=== PATIENT | female | born 1950 | race Caucasian/White ===

== ENCOUNTER 2017-11-21 19:38 | Emergency (ER) | payer OTHER ==
[~2017-11-21] VITALS: Ht 170.2 cm; Wt 59.0 kg
[~2017-11-21 19:38] MED LIST: NEXIUM40 MG PO; NORCO 5-325 TA1 EACH PO; PROAIR HFA8.5 GM INH; SILVADENE20 GM TP; TUSSIONEX PENN115 ML PO
[2017-11-21] MEDS ORDERED: PENICILLIN V P500 MG PO (21:03)
== END 2017-11-21 21:15 | disposition home or self-care (01) ==
LOC: ER 19:38
DX: K05.10 Chronic gingivitis, plaque induced (principal); K00.7 Teething syndrome; R00.0 Tachycardia, unspecified; F17.210 Nicotine dependence, cigarettes, uncomplicated

== ENCOUNTER → 2018-07-13 | Outpatient (CLI) | payer OTHER ==
[~2018-07-13] MED LIST changes: +PENICILLIN V P500 MG PO
== END ==
LOC: RAD 04:52
DX: Z12.31 Encounter for screening mammogram for malignant neoplasm of breast (principal)

== ENCOUNTER → 2019-09-05 | Outpatient (CLI) | payer OTHER | LOC: BC 07:51 | DX: Z12.31 Encounter for screening mammogram for malignant neoplasm of breast (principal) ==

== ENCOUNTER → 2019-09-25 | Outpatient (CLI) | payer OTHER | LOC: BC 12:42 | DX: N63.12 Unspecified lump in the right breast, upper inner quadrant (principal) ==

== ENCOUNTER → 2019-09-30 | Outpatient (CLI) | payer OTHER ==
--- NOTE | 2019-10-08 12:07 | PATH ---
[facility] [place] [address] PATHOLOGY RPT PROCEDURE Name: NEGIN SIMMS Room #: REG GIUSEPPE M.R.#: [id number] Admission: 09/30/19 Date of : 54 Discharge: Report #: [id number] Path Case #: [id number] LCA Accession Number: [id number] . 01 Material submitted: . breast - RIGHT BREAST MASS 12:30-1:00 6CMFN. Modifiers: right . 01 Clinical history: . Right breast mass . 02 Diagnosis: Breast, right breast mass 12:30 to 1:00, 6 cm from nipple, needle core biopsy: - INVASIVE MODERATELY DIFFERENTIATED DUCTAL ADENOCARCINOMA, MARISELA GRADE II MEASURING 1.2 CM IN GREATEST DIMENSION IN CONTIGUOUS LENGTH IN A SINGLE CORE (PLEASE SEE COMMENT). - DUCTAL CARCINOMA IN SITU, SOLID TYPE AND INTERMEDIATE NUCLEAR GRADE. . (IUV:jerardo; 10/02/2019) QMS 10/02/2019 1424 Local . 02 Comment: Specimen type: Needle core biopsy Tumor site: Right breast 12:30 to 1:00, 6 cm from nipple Tumor quantitation: 1.2 cm in greatest dimension Histologic type: Invasive ductal carcinoma Histologic grade: [place] grade II Tubules, nuclei and mitoses: 3, 2 and 1 LVSI: Not identified Microcalcifications: Present within invasive ductal carcinoma Markers: ER, NV, HER-2/rizwana and Ki-67 Block: A2 . . Co-review (slide A4-13): Dr. Celina Warren . Findings of this case are telephoned to Ms. Nguyen at our breast center in the morning of 10/02/2019. . (IUV:jerardo; 10/02/2019) . 02 Addendum: . Special studies report received from [facility], [address] [place] [address], [facility] [address], [place], [address], on case [id number], labeled with their number [id number], dated 10/07/2019. . Breast/[place] [address] PATHOLOGY RPT PROCEDURE Name: NEGIN SIMMS Room #: REG GIUSEPPE Espino#: [id number] Admission: 09/30/19 Date of : 54 Discharge: Report #: [id number] Path Case #: [id number] . Specimen Site: Rt Breast,mass - Breast Cancer Specimen ID #: [id number] . . ER (Estrogen Receptor) Present/Positive Percent: 95.00% Analysis: Manual Comments: Staining Intensity: Moderate to Strong. . NV (Progesterone Receptor) Present/Positive Percent: 80.00% Analysis: Manual Comments: Staining Intensity: Weak to Moderate. . HER2 Not Over-Expressed Score: 1+ Analysis: Manual . Ki-67 Low Proliferation Percent: 5.00% Analysis: Manual . Time to Fixation (Cold Ischemic Time): Not Provided Duration of Fixation: Not Provided Type of Fixative: 10% Neutral Buffered Formalin . at [employer]. Clarence Rincon MD Pathologist . . Methodology The HER2 Receptor protein expression is analyzed using the Lolita HER2 rabbit monoclonal antibody (clone [id number]). This assay is used for diagnostic determination of the HER2 protein over-expression in paraffin embedded, formalin fixed breast cancer tissue on the [employer] Benchmark. The specimen is processed using a secondary antibody-HRP conjugate detection system. The membrane staining of the tumor is determined either by manual score or image analysis. This antibody is intended for in vitro diagnostic use. The score is reported as 0, 1+, 2+, or 3+. This test is used for clinical purposes. . A rabbit monoclonal antibody (clone SP1) that recognized the Estrogen [address] [address] PATHOLOGY RPT PROCEDURE Name: NEGIN SIMMS Room #: REG GIUSEPPE Espino#: [id number] Admission: 09/30/19 Date of : 54 Discharge: Report #: [id number] Path Case #: [id number] Receptor is used to perform immunohistochemistry on routinely fixed (formalin) paraffin embedded tissue on the Lolita Benchmark. The specimen is processed using a secondary antibody-HRP conjugate detection system. The percentage of stained tumor nuclei is determined either manually or by image analysis. This test is intended for in vitro diagnostic use. This test is used for clinical purposes. . A rabbit monoclonal antibody (clone 1E2) that recognized the Progesterone Receptor is used to perform immunohistochemistry on routinely fixed (formalin) paraffin embedded tissue on the Lolita Benchmark. The specimen is processed using a secondary antibody-HRP conjugate detection system. The percentage of stained tumor nuclei is determined either manually or by image analysis. This test is intended for in vitro diagnostic use. This test is used for clinical purposes. . A rabbit monoclonal antibody (clone 30-9) that recognized Ki67 is used to perform immunohistochemistry on routinely fixed (formalin) paraffin embedded tissue on the Lolita Benchmark. The specimen is processed using a secondary antibody-HRP conjugate detection system. The percentage of stained tumor nuclei is determined either manually or by image analysis. This test is intended for in vitro diagnostic use. This test is used for clinical purposes. . Intended Use: This antibody is intended for in vitro diagnostic (IVD) use. HER2 (4B5) is a rabbit monoclonal antibody intended for the semi-quantitative detection of HER2 antigen in sections of formalin-fixed, paraffin embedded normal and neoplastic tissue. . This antibody is intended for in vitro diagnostic (IVD) use. Estrogen Receptor (ER) (SP1) is a rabbit monoclonal antibody (IgG) that is intended for the qualitative detection of estrogen receptor (ER) antigen in sections of formalin-fixed, paraffin-embedded tissue. ER is a rabbit monoclonal antibody that recognizes human estrogen receptor alpha. . This antibody is intended for in vitro diagnostic (IVD) use. Progesterone Receptor (NV) (1E2) is a rabbit monoclonal antibody (IgG) that is intended for the qualitative detection of progesterone receptor (NV) antigen in sections of formalin fixed, paraffin embedded tissue. NV is a rabbit monoclonal antibody that recognizes the A and B forms of the human progesterone receptor. . This antibody is intended for in vitro diagnostic (IVD) use. Ki-67 (30-9) is a rabbit monoclonal antibody (IgG) directed against C-terminal portion of Ki-67 antigen. Staining for Ki-67 can be used to aid in assessing the proliferative activity of normal and neoplastic tissue. Ki-67 is a nuclear protein expressed in proliferating cells. During the cell cycle, the Ki-67 antigen is present in the G1, S, G2 and M phase but is absent in the G0 [facility] [address] [place] [address] PATHOLOGY RPT PROCEDURE Name: NEGIN SIMMS Room #: REG [facility].#: [id number] Admission: 09/30/19 Date of : 54 Discharge: Report #: [id number] Path Case #: [id number] (quiescent phase). . . Disclaimer: This Test was performed by [employer] at [address], [address]. . [facility] is a business unit of [employer] a wholly-owned subsidiary of [employer]. . This assay has not been validated on decalcified tissues. Results should be interpreted with caution if this specimen was decalcified given the likelihood of false negativity on decalcified specimens. . Any image(s) that accompany this report is/are a solar sales representative and assessor image(s) only and should not be used to render a diagnosis. . This interpretation is contingent on the specimen and the clinical information received. . For any special tests/stains performed, known positive cells or tissues are tested with each marker and examined to ensure positivity. Positive and negative internal controls, if present, react appropriately. . This analysis is an adjunct to the evaluation of the referring physician and does not represent a final diagnosis. . The immunohistochemistry tests performed at [employer] were validated on tissue fixed in 10% neutral buffered formalin. The performance characteristics of the tests performed on tissue processed in other fixatives is not known. . HER2 testing at [employer] [place] is performed in compliance with the 2018 updated ASCO/CAP Clinical Practice Guideline Focused Update. If the result is EQUIVOCAL (2+), it must be confirmed by an alternative assay such as FISH or Dual RASHEED. REF: Carli FAY, ERNESTO Villalpando et al: Human Epidermal Growth Factor Receptor 2 Testing in Breast Cancer: ASCO/CAP Clinical Practice Guideline Focused Update. J Clin Oncol 36:5427-7337, 2018. . HER2 and ER/NV ASCO/CAP guidelines require fixation in neutral buffered formalin for a minimum of 6 and a maximum of 72 hours. Fixation times less than 6 hours may not adequately preserve cell proteins. Fixation times longer than 72 hours may cause excess cross-linking of proteins reducing the antigen available for staining. Either scenario can cause reduced staining; hence false negative results are possible and should be considered for these situations if the HER2 IHC score is less than 3+ or [address] [address] PATHOLOGY RPT PROCEDURE Name: NEGIN SIMMS Room #: REG GIUSEPPE Espino#: [id number] Admission: 09/30/19 Date of : 54 Discharge: Report #: [id number] Path Case #: [id number] ER or NV is negative (no staining or <1% positive). It is recommended that specimens fixed longer than 72 hours with HER2 IHC scores less than 3+ be confirmed by HER2 FISH or Dual RASHEED. The time from biopsy/excision to fixation in formalin (cold ischemic time) must be less than 1 hour. Time to fixation (cold ischemic time) greater than 1 hour should be interpreted with caution. HER2 testing, mainly HER2 by FISH, is particularly vulnerable since excessive cold ischemic time results in preferential loss of HER2 probe signals that may lead to false negative results. . SCORE STAINING PATTERN IN TUMOR CELLS INTERPRETATION RESULTS 0 No staining observed or incomplete, faint membrane staining in less than or equal to 10% of tumor cells. Negative 1+ Incomplete, faint membrane staining in greater than 10% of tumor cells. Negative 2+ Weak to moderate complete membrane staining observed in greater than 10% of tumor cells. Equivocal* *Must be confirmed by alternative assay (IHC/FISH/Dual RASHEED) 3+ Intense, complete membrane staining in greater than 10% of tumor cells. Positive . A complete copy of the report is on file. . Professional and Technical services performed by [employer] at [address] [place] [address]. . (IUV:amj 10/08/2019) . . . [place]/10/08/2019 Addendum Electronically Signed by Blessing Elder MD, Pathologist . 02 Electronically signed: . Blessing Elder MD, Pathologist NPI- [id number] . 01 Gross description: . The specimen is received in formalin, labeled "Negin Simms, right breast mass 12:30-1:00 6 cm from nipple". Received are multiple needle cores of fibrofatty tissue measuring 4.2 x 3.6 x 0.7 cm in aggregate dimensions. The specimen is submitted entirely in cassettes A1 through [address] [address] PATHOLOGY RPT PROCEDURE Name: NEGIN SIMMS Room #: REG CLShaheen Stevens.#: [id number] Admission: 09/30/19 Date of : 54 Discharge: Report #: [id number] Path Case #: [id number] A5. The specimen is collected at 2:45 p.m. on 09/30/2019; the time in formalin is not provided. The time out of formalin is 6:50 p.m. on 10/01/2019. (CAA; 10/01/2019) QAC/QAC 10/01/2019 0842 Local . 02 Pathologist provided ICD-10: C50.911, D05.11 . 02 CPT . 232192 Specimen Comment: A courtesy copy of this report has been sent to [phone] Specimen Comment: Report sent to Performed at: [address] [facility], [place] [id number] MD Sai Smith MD Phone: [phone] Performed at: [address] [facility] [id number] MD Blessing Elder MD Phone: [phone]
== END | disposition home or self-care (01) ==
LOC: ULTRA 14:00
DX: C50.911 Malignant neoplasm of unspecified site of right female breast (principal); R92.1 Mammographic calcification found on diagnostic imaging of breast; Z98.890 Other specified postprocedural states; Z79.899 Other long term (current) drug therapy; Z85.818 Personal history of malignant neoplasm of other sites of lip, oral cavity, and pharynx

== ENCOUNTER 2019-11-03 17:38 | Emergency (ER) | payer OTHER ==
[~2019-11-03] VITALS: Ht 170.2 cm; Wt 59.4 kg
[2019-11-03] MEDS ORDERED: NORCO 5-325 TA1 EAC1 PO (19:18)
[2019-11-03] MEDS ORDERED: LIDOCAINE1 EACH TRANSDERM (19:18)
[2019-11-03] MEDS ORDERED: MOBIC15 MG PO (19:18)
[2019-11-03 19:45] VITALS: BP 113/95
== END 2019-11-03 19:47 | disposition home or self-care (01) ==
LOC: ER 17:38
DX: S22.32XA Fracture of one rib, left side, initial encounter for closed fracture (principal); F17.210 Nicotine dependence, cigarettes, uncomplicated; W18.09XA Striking against other object with subsequent fall, initial encounter; Y93.89 Activity, other specified; Y92.89 Other specified places as the place of occurrence of the external cause; Y99.8 Other external cause status

== ENCOUNTER → 2019-11-04 | Outpatient (CLI) | payer OTHER ==
[~2019-11-04] MED LIST changes: +LEXAPRO 10 MG T10 M2 PO; +LIDOCAINE1 EACH TRANSDERM; +MOBIC15 MG PO; +NORCO 5-325 TA1 EAC1 PO; +TYLENOL EXTRA500 MG PO
[2019-11-04 11:07] LABS: CREATININE 0.6 mg/dL (0.6-1.0)
== END ==
LOC: MRI 09:58
PROVIDERS: Specialist
DX: C50.211 Malignant neoplasm of upper-inner quadrant of right female breast (principal); R92.2 Inconclusive mammogram

== ENCOUNTER 2019-11-22 08:44 | Day surgery (SDC) | payer OTHER ==
[~2019-11-22] VITALS: Ht 165.1 cm; Wt 60.3 kg
[2019-11-22 09:40] LABS: HEMATOCRIT 42.9 % (37.0-47.0); HEMOGLOBIN 14.2 gm/dL (12.0-15.0); MCH 30.8 pg (26.0-34.0); MCV 93.3 fL (80.0-100.0); RBC 4.6 mil/uL (4.20-5.00); RDW 14.7 % (10.5-14.5); WBC 6.8 thou/uL (4.0-11.0)
[2019-11-22 09:46] LABS: CALCIUM 10.1 mg/dL (8.5-10.1); CREATININE 0.6 mg/dL (0.6-1.0); POTASSIUM 3.8 mmol/L (3.5-5.1)
[2019-11-22 09:52] LABS: ALBUMIN 3.9 g/dL (3.4-5.0); TOTAL BILIRUBIN 0.5 mg/dL (<0.1-1.0); TOTAL PROTEIN 7.1 g/dL (6.4-8.2)
--- NOTE | 2019-11-27 13:08 | PATH ---
[facility] [place] [address] PATHOLOGY RPT PROCEDURE Name: NEGIN SIMMS Room #: [facility].R.#: [id number] Admission: 11/22/19 Date of : 54 Discharge: 11/22/19 Report #: [id number] Path Case #: [id number] LCA Accession Number: [id number] . 01 Material submitted: . PART A: breast - RIGHT BREAST SEGMENTAL RESCETION, LONG - LATERAL, SHORT - SUPERFICIAL. Modifiers: right PART B: lymph node - RIGHT AXILLARY SENTINEL LYMPH NODE #1. Modifiers: right, axillary tail, 1 PART C: lymph node - RIGHT AXILLARY SENTINEL LYMPH NODE #2. Modifiers: right, axillary tail, 2 . 02 Frozen section diagnosis: . INTRAOPERATIVE CONSULTATION: A. Breast, right breast, segmental resection: - Dense white lesion identified along with hemorrhagic biopsy cavity underneath the D-3 focus corresponding to the Accugrid map. . (IUV:pit 11/22/2019) . INTRAOPERATIVE GROSS DESCRIPTION: A. Specimen is received fresh from the OR labeled with the patient's name on an Accugrid map labeled "right breast segmental resection long suture lateral margin, short suture superficial margin", consists of a 55.5 gram specimen measuring 5.5 x 6.5 x 2.0 cm. The lesion is identified at D-3 on the radiograph. The clip is present at this focus as well on the map. The specimen is inked orange at this point on the anterior/superficial surface. The remainder of the superficial surface is inked blue. The deep margin is inked black, the medial margin is inked yellow, the lateral margin is inked green, and the inferior margin is inked red. The superior margin is where the blue and black inks meet. At this point the specimen is serially sectioned and it shows a dense white lesion present in the middle of the specimen adjacent to the hemorrhagic biopsy cavity. (IUV:pit 11/22/2019) . Intraoperative consulation performed at [facility], [address] [place], [place] [address] , [place] [address]. IZV/QTP . 02 Diagnosis: A. Breast, right breast, segmental resection: - INVASIVE MODERATELY DIFFERENTIATED DUCTAL ADENOCARCINOMA, MARISELA GRADE 2 MEASURING 1.0 CM IN GREATEST DIMENSION (PLEASE SEE COMMENT). - MARGINS OF RESECTION FREE OF MALIGNANCY; CLOSEST ANTERIOR/SUPERFICIAL AND MEDIAL MARGINS 9 MM AWAY. . B. Lymph node (1), right axillary sentinel lymph node #1, biopsy: - Reactive lymph node without isolated tumor cells or micrometastases or [address] [address] PATHOLOGY RPT PROCEDURE Name: NEGIN SIMMS Room #: DEP [facility] M.R.#: [id number] Admission: 11/22/19 Date of : 54 Discharge: 11/22/19 Report #: [id number] Path Case #: [id number] any malignancy (0/1). . C. Lymph nodes (2), right axillary sentinel lymph node #2, biopsy: - Reactive lymph node without isolated tumor cells or micrometastases or any malignancy (0/2). (IUV/db; 11/25/2019) . . Surgical Pathology Cancer Case Summary . Protocol posting date: September 2017 . INVASIVE CARCINOMA OF THE BREAST: . . Specimen Identification Procedure ___ Segmental resection . Specimen Laterality ___Right . Tumor Site: Invasive Carcinoma ___ Position: 12:30 to 1:00 clock, 6cm from nipple . Tumor Size ___ At least 3.5 cm . Histologic Type ___ Invasive ductal carcinoma . Histologic Grade (Marisela Histologic Score) Glandular (Acinar)/Tubular Differentiation ___ Score 3 (<10% of tumor area forming glandular/tubular structures) Nuclear Pleomorphism ___ Score 2 (cells larger than normal with open vesicular nuclei, visible nucleoli, and moderate variability in both size and shape) Mitotic Rate ___ Score 1 (< or =3 mitoses per mm2) Overall Grade ___Grade 2 (scores of 6 or 7) . Tumor Focality ___ Single focus . Ductal Carcinoma In Situ (DCIS) ___ Identified ___ Negative for extensive intraductal component (EIC) [address] [address] PATHOLOGY RPT PROCEDURE Name: NEGIN SIMMS Room #: DEP [facility] Srinivas#: [id number] Admission: 11/22/19 Date of : 54 Discharge: 11/22/19 Report #: [id number] Path Case #: [id number] Architectural Patterns ___ Solid ___ Grade II (intermediate) . Margins . Invasive Carcinoma Margins ___ Uninvolved by invasive carcinoma Distance from closest margin (millimeters): 9 mm Specify closest margin: anterior/ superficial and medial . Regional Lymph Nodes Uninvolved by tumor cells Number of Lymph Nodes Examined: 3 Number of [place] Nodes Examined: 3 . Treatment Effect ___ No known presurgical therapy . Lymphovascular Invasion ___ Not identified . Dermal Lymphovascular Invasion ___ Not identified . Pathologic Stage Classification (pTNM, AJCC 8th Edition) Note: Reporting of pT, pN, and (when applicable) pM categories is based on information available to the pathologist at the time the report is issued. . Primary Tumor (Invasive Carcinoma) (pT) ___ pT1c: Tumor >10 mm but < or =20 mm in greatest dimension Category (pN) (sn) ___ pN0: No regional lymph node metastasis identified . Distant Metastasis (pM) (required only if confirmed pathologically in this case) ___ pMX: Unknown [facility] 11/26/2019 1042 Local . 02 Comment: The tumor measured 1.2 cm in greatest dimension in contiguous length in a single core in the biopsy tissue ([id number] right breast mass 12:30 to 1:00 6 cm from nipple). Please refer to a separate report for details. The breast prognostic markers were performed on the same and are not repeated on the current tissue. The tumor measures 1.0 cm in greatest dimension in a single focus, and is noted adjacent to a large hemorrhagic biopsy cavity. Per the ultrasound measurements, the tumor measures 15 x [facility] [address] [place] [address] PATHOLOGY RPT PROCEDURE Name: NEGIN SIMMS Room #: DEP [facility]..#: [id number] Admission: 11/22/19 Date of : 54 Discharge: 11/22/19 Report #: [id number] Path Case #: [id number] 10 x 17 mm. The tumor is therefore staged at pT1c based on the same. . Multiple properly controlled immunohistochemical stains are performed as follows: . AE1/AE3 and CK SHAHIDA performed on block B1 - Negative for isolated tumor cells and micrometastases; no membranous staining pattern. AE1/AE3 and CK SHAHIDA performed on block C1 - Negative for isolated tumor cells and micrometastases; no membranous staining pattern. (IUV/db; 11/25/2019) . 02 Addendum: . This addendum is issued to correct the Tumor size reported in the synoptic reporting or cancer case summary. The originally rendered diagnoses and comment remain unchanged. . . Surgical Pathology Cancer Case Summary . Protocol posting date: September 2017 . INVASIVE CARCINOMA OF THE BREAST: . . Specimen Identification Procedure ___ Segmental resection . Specimen Laterality ___Right . Tumor Site: Invasive Carcinoma ___ Position: 12:30 to 1:00 clock, 6 cm from nipple . Tumor Size ___ 1.0 CM IN GREATEST DIMENSION . Histologic Type ___ Invasive ductal carcinoma . Histologic Grade (Marisela Histologic Score) Glandular (Acinar)/Tubular Differentiation ___ Score 3 (<10% of tumor area forming glandular/tubular structures) Nuclear Pleomorphism ___ Score 2 (cells larger than normal with open vesicular nuclei, visible nucleoli, and moderate variability in both size and shape) Mitotic Rate ___ Score 1 (=3 mitoses per mm2) [facility] [address] [place] [address] PATHOLOGY RPT PROCEDURE Name: NEGIN SIMMS Room #: DEP [facility]..#: [id number] Admission: 11/22/19 Date of : 54 Discharge: 11/22/19 Report #: [id number] Path Case #: [id number] Overall Grade ___Grade 2 (scores of 6 or 7) . Tumor Focality ___ Single focus . Ductal Carcinoma In Situ (DCIS) ___ Identified ___ Negative for extensive intraductal component (EIC) . Architectural Patterns ___ Solid ___ Grade II (intermediate) . Margins . Invasive Carcinoma Margins ___ Uninvolved by invasive carcinoma Distance from closest margin (millimeters): 9 mm Specify closest margin: anterior/ superficial . Regional Lymph Nodes Uninvolved by tumor cells Number of Lymph Nodes Examined: 3 Number of [place] Nodes Examined: 3 . Treatment Effect ___ No known presurgical therapy . Lymphovascular Invasion ___ Not identified . Dermal Lymphovascular Invasion ___ Not identified . Pathologic Stage Classification (pTNM, AJCC 8th Edition) Note: Reporting of pT, pN, and (when applicable) pM categories is based on information available to the pathologist at the time the report is issued. . . Primary Tumor (Invasive Carcinoma) (pT) ___ pT1c: Tumor >10 mm but =20 mm in greatest dimension Category (pN) (sn) ___ pN0: No regional lymph node metastasis identified . Distant Metastasis (pM) (required only if confirmed pathologically in this case) ___ pMX: Unknown [facility] [place] [address] PATHOLOGY RPT PROCEDURE Name: NEGIN SIMMS Room #: DEP [facility]..#: [id number] Admission: 11/22/19 Date of : 54 Discharge: 11/22/19 Report #: [id number] Path Case #: [id number] . (IUV:jerardo; 11/27/2019) . . Professional services performed by [facility] at [facility], [address] [place] [address]. [facility] at [address] [place] [address], [address], [place] [address]. QMS/11/27/2019 Addendum Electronically Signed by Blessing Elder MD, Pathologist . 02 Electronically signed: . Blessing Elder MD, Pathologist NPI- [id number] . 01 Gross description: . A. PLEASE SEE FROZEN SECTION FOR GROSS DESCRIPTION . A. The biopsy cavity and scant possible lesion measures 3.0 x 2.7 x 1.8 cm and is located 1.5 cm to inferior, 2.4 cm to superior, 0.5 cm to anterior, 1.3 cm to posterior, 1.7 cm to lateral, and 1.2 cm to medial. Tobacco Checkout Clerk sections are submitted as follows: A1-A2 practice representative superior margin A3-A4 practice representative inferior margin A5-A8 tumor to medial margin A9 tumor to lateral margin A10-A11 full face section of tumor A12 full face section of tumor A13-A14 additional sections of tumor The specimen is removed from the patient at 1405 and placed in formalin at 1440 on 11/22/2019. The specimen is removed from formalin at 1850 on 11/24/2019. . B. Received in formalin labeled "Negin Simms, right axillary sentinel lymph node #1" is a yellow-edgar lymph node measuring 1.2 x 0.8 x 0.5 cm. The specimen is serially sectioned and submitted in B1. . C. Received in formalin labeled "Negin Simms, right axillary sentinel lymph node #2" are two pink-edgar possible lymph nodes measuring 0.3 and 0.5 cm in greatest dimension. The specimen is submitted without sectioning in C1. ([facility]; 11/24/2019) [facility] 11/25/2019 [facility] Local . 02 Pathologist provided ICD-10: C50.911, D05.11 . 02 CPT . 834165, 659233, 286106, 043664, [id number], [id number] Specimen Comment: A courtesy copy of this report has been sent to [phone], [place] [address] PATHOLOGY RPT PROCEDURE Name: NEGIN SIMMS Room #: DEP [facility] Srinivas#: [id number] Admission: 11/22/19 Date of : 54 Discharge: 11/22/19 Report #: [id number] Path Case #: [id number] Specimen Comment: [phone], , Specimen Comment: Report sent to ,DR RICHARDSON / DR LUGO Specimen Comment: DR DASILVA Performed at: [address], [place] [id number] MD Sai Smith MD Phone: [phone] Performed at: [address] [id number] MD Blessing Elder MD Phone: [phone]
--- NOTE | 2019-12-05 15:12 | O ---
[facility] [place] [address] OPERATIVE REPORT Name: CASEY SIMMS Room #: DEP [facility] M..#: [id number] Admission: 11/22/19 Attend Phys: Keven Lino MD Discharge: 11/22/19 Date of : 54 Report #: [id number] THIS REPORT FOR: cc: Ady Baird MD, FAAFP, FACEP, Douglas MD FAAFP FACEP McCroskey, Lon C. MD ~ CC: Ady Nava MD PREOPERATIVE DIAGNOSIS: Carcinoma, right upper breast, status post recent needle biopsy. POSTOPERATIVE DIAGNOSIS: Carcinoma, right upper breast, status post recent needle biopsy, final pathology pending. OPERATION: 1. Lymphatic mapping. 2. Right breast segmental resection with wire localization and specimen x-ray. 3. Oncoplastic closure with placement of BioZorb tissue marker. 4. Right axillary sentinel lymph node resection x 2. SURGEON: Dr. Keven Lino. ELECTRICAL ASSISTANT: Medical student MS Richard3. SECOND DRESSING ROOM ATTENDANT: Medical student MS Moisés3. ANESTHESIA: General. DESCRIPTION OF PROCEDURE: The patient was taken to Nuclear Medicine and the radiologist injected technetium sulfur colloid into the right breast as per protocol. Lymphoscintigraphy demonstrated 2 hot spots in the right axilla, which were marked by the radiologist. In addition, the radiologist performed wire localization for the biopsy clip and hematoma site at the 12 to 1 o'clock position, right upper breast. The patient was brought to the operating room for a general anesthetic. Lymphatic mapping was performed using the gamma probe and we confirmed the presence of a right axillary hot spot, which had a 10-second count of 1889. Next, 5 mL of Lymphazurin blue dye were injected around the tumor site using sterile technique with alcohol prep. Next, the right breast and right axilla were widely prepped with ChloraPrep solution. Sterile drapes were applied. A circumareolar incision was made in the right upper breast midway between the wire insertion site and the areola. Dissection was carried down through the skin and subcutaneous tissue and then cephalad above the tumor [address] [address] OPERATIVE REPORT Name: CASEY SIMMS Room #: DEP [facility].#: [id number] Admission: 11/22/19 Attend Phys: Keven Lino MD Discharge: 11/22/19 Date of : 54 Report #: [id number], which was palpable based on the post-biopsy hematoma. A generous segmental resection or partial mastectomy was performed, removing the entire lump and normal breast tissue all around together with the pectoralis fascia in order to get best possible margins. The specimen was marked with sutures for orientation purposes. Specimen x-ray confirmed removal of the guidewire and the clip and the hematoma and normal breast tissue all around. The radiologist was happy with the specimen x-ray and so was I. The specimen was given directly to the pathologist. Palpation within the breast revealed no other suspicious areas. It was possible through this incision to get into the axilla, which was carefully approached with care being taken to avoid injury to the neurovascular structures. We found 2 sentinel nodes, which were both excised, controlling the blood and lymphatic supply using Harmonic scalpel. Toano node #1 had a 10-second count of 16,865, it was blue. Toano node #2 had a 10-second count of 2788, it was not blue. Both were submitted to pathology. Palpation within the incision revealed no other suspicious nodes by palpation nor could we find any more blue or radioactive nodes. The post-resection bed count was 55, which was well below 10% of the highest node. Hemostasis was excellent. The breast tissue was mobilized off of the pectoralis muscle in order to accomplish oncoplastic tissue flap mobilization. It is estimated that greater than 35 square cm of tissue were mobilized. The 2 x 3 cm BioZorb tissue marker was placed into the lumpectomy cavity to help the radiation oncologist in case boost therapy might be necessary. The BioZorb tissue marker was secured using interrupted 3-0 Vicryl. The breast tissue flaps were now reapproximated to complete the oncoplastic closure using interrupted 3-0 Vicryl. This allowed for a nice cosmetic result. The skin was closed using running 4-0 subcuticular PDS. Sterile dressings were applied and the patient was taken to recovery in satisfactory condition. Estimated blood loss was less than 10 mL. <ELECTRONICALLY SIGNED> By: Keven Lino MD 12/05/19 1512 [id number] [id number] Keven Lino MD /nt
== END 2019-11-22 16:16 | disposition home or self-care (01) ==
LOC: OR 08:44 → TBA 08:52 → OR 09:35
PROVIDERS: Specialist
DX: C50.911 Malignant neoplasm of unspecified site of right female breast (principal); K21.9 Gastro-esophageal reflux disease without esophagitis; F17.210 Nicotine dependence, cigarettes, uncomplicated; Z98.890 Other specified postprocedural states; Z79.899 Other long term (current) drug therapy; Z85.818 Personal history of malignant neoplasm of other sites of lip, oral cavity, and pharynx
CPT/HCPCS: 50010; 50101; 50386; 50403; 52190; 53332; 56524; 56526; 62110; 62900; 70005

== ENCOUNTER 2020-06-02 15:30 | Emergency (ER) | payer OTHER ==
[~2020-06-02] VITALS: Ht 165.1 cm; Wt 59.0 kg
[2020-06-02] MEDS ORDERED: AUGMENTIN 875-1 EACH PO ×2 (16:21→16:26)
[2020-06-02 16:40] VITALS: BP 137/81
== END 2020-06-02 16:44 | disposition home or self-care (01) ==
LOC: ER 15:30
DX: H57.89 Other specified disorders of eye and adnexa (principal); K21.9 Gastro-esophageal reflux disease without esophagitis; F17.210 Nicotine dependence, cigarettes, uncomplicated; Z79.899 Other long term (current) drug therapy

== ENCOUNTER → 2020-07-02 | Outpatient (CLI) | payer OTHER ==
[~2020-07-02] MED LIST changes: +AUGMENTIN 875-1 EACH PO
== END ==
LOC: RAD 13:16
PROVIDERS: ATTEND Specialist
DX: C50.211 Malignant neoplasm of upper-inner quadrant of right female breast (principal)

== ENCOUNTER 2021-01-23 04:54 | Emergency (ER) | payer OTHER ==
[~2021-01-23] VITALS: Ht 167.6 cm; Wt 59.9 kg
[2021-01-23 08:22] VITALS: BP 122/69
== END 2021-01-23 08:24 | disposition home or self-care (01) ==
LOC: ER 04:54
DX: S01.01XA Laceration without foreign body of scalp, initial encounter (principal); K21.9 Gastro-esophageal reflux disease without esophagitis; F17.210 Nicotine dependence, cigarettes, uncomplicated; Z85.3 Personal history of malignant neoplasm of breast; Z85.819 Personal history of malignant neoplasm of unspecified site of lip, oral cavity, and pharynx; Z79.2 Long term (current) use of antibiotics; Z79.899 Other long term (current) drug therapy; W07.XXXA Fall from chair, initial encounter; Y93.89 Activity, other specified; Y92.89 Other specified places as the place of occurrence of the external cause; Y99.8 Other external cause status

== ENCOUNTER 2021-02-05 13:00 | Emergency (ER) | payer OTHER ==
[~2021-02-05] VITALS: Ht 170.2 cm; Wt 59.0 kg
[2021-02-05 13:26] VITALS: BP 161/75
== END 2021-02-05 13:26 | disposition home or self-care (01) ==
LOC: ER 13:00
DX: S01.01XD Laceration without foreign body of scalp, subsequent encounter (principal); K21.9 Gastro-esophageal reflux disease without esophagitis; F17.210 Nicotine dependence, cigarettes, uncomplicated; Z79.899 Other long term (current) drug therapy; Z98.890 Other specified postprocedural states; W18.30XD Fall on same level, unspecified, subsequent encounter

== ENCOUNTER 2021-02-19 13:53 | Emergency (ER) | payer OTHER ==
[~2021-02-19] VITALS: Ht 167.6 cm; Wt 59.0 kg
[2021-02-19] MEDS ORDERED: MELOXICAM7.5 MG PO (14:09)
[2021-02-19] MEDS ORDERED: COZAAR 25 MG TA25 M1 PO (14:09)
[2021-02-19 15:32] VITALS: BP 158/73
== END 2021-02-19 15:33 | disposition home or self-care (01) ==
LOC: ER 13:53
DX: R22.1 Localized swelling, mass and lump, neck (principal); R11.10 Vomiting, unspecified; F17.210 Nicotine dependence, cigarettes, uncomplicated; K21.9 Gastro-esophageal reflux disease without esophagitis; Z85.819 Personal history of malignant neoplasm of unspecified site of lip, oral cavity, and pharynx; Z98.890 Other specified postprocedural states

== ENCOUNTER → 2021-05-03 | Outpatient (CLI) | payer OTHER ==
[~2021-05-03] MED LIST changes: +COZAAR 25 MG TA25 M1 PO; +MELOXICAM7.5 MG PO
== END ==
LOC: LAB 13:54
PROVIDERS: Specialist; ATTEND Student in an Organized Health Care Education/Training Program
DX: Z01.812 Encounter for preprocedural laboratory examination (principal); Z20.822 Contact with and (suspected) exposure to COVID-19

== ENCOUNTER → 2021-05-05 | Outpatient (CLI) | payer OTHER ==
[~2021-05-05] VITALS: Ht 167.6 cm; Wt 58.1 kg
--- NOTE | 2021-05-07 08:19 | P ---
[facility] [place] [address] PROCEDURE REPORT Name: CASEY SIMMS Room #: REG [facility].#: [id number] Admission: 05/05/21 Attend Phys: Juan Alberto Lyman Discharge: Date of : 54 Report #: [id number] THIS REPORT FOR: cc: Ady Baird MD, FAAFP, FACEP, Douglas MD FAA Juan Alberto Oswald MD ~ cc: Ady Baird MD DATE OF SERVICE: 05/05/2021 PROCEDURE PERFORMED: Colonoscopy with biopsies. HISTORY OF PRESENT ILLNESS: The patient is a 70-year-old female with a history of colon polyps. Reports bowel movements have been normal recently. No family history of colon cancer. DESCRIPTION OF PROCEDURE: The risks and benefits of the procedure were explained to the patient, those risks including but not limited to bleeding, perforation and the risk of sedation. She understood these risks and gave informed consent. Sedation was given using propofol per anesthesia. Next, a digital rectal exam was initially performed, which was normal. Next, using a standard Olympus colonoscope, the scope was placed in the patient's anus and advanced under direct vision to the cecum. The overall prep was excellent. In the cecum, there was a 4 mm sessile polyp. This was removed with cold forceps, otherwise normal. The ileocecal valve was normal. Ascending, transverse, descending colon were normal. Multiple diverticula were noted throughout the sigmoid colon. Also noted was a 3 mm sessile polyp. This was removed with cold forceps. The rectal mucosa was normal. On retroflexion, medium to large size internal hemorrhoids, nonbleeding were noted. The scope was then withdrawn and the procedure terminated. The patient tolerated the procedure well. IMPRESSION: 1. Two small colonic polyps. 2. Sigmoid diverticulosis. 3. Internal hemorrhoids. 4. Otherwise, normal colonoscopy. RECOMMENDATIONS: 1. Await biopsy results. 2. Repeat colonoscopy in [address] [address] PROCEDURE REPORT Name: CASEY SIMMS Room #: REG [facility] Srinivas#: [id number] Admission: 05/05/21 Attend Phys: Juan Alberto Lyman Discharge: Date of : 54 Report #: [id number] Thank you for allowing me to participate in her care. <ELECTRONICALLY SIGNED> By: Juan Alberto Velasquez MD 05/07/21 0819 0941 35 Juan Alberto Velasquez MD /nt
--- NOTE | 2021-05-07 08:19 | P ---
[facility] [place] [address] PROCEDURE REPORT Name: CASEY SIMMS [id number] Admission: 05/05/21 Attend Phys: Juan Alberto Lyman Discharge: Date of : 54 Report #: [id number] THIS REPORT FOR: cc: Ady Baird MD [facility] Ady Cedillo MD [facility] Juan Alberto Velasquez MD ~ cc: Ady Baird MD DATE OF SERVICE: 05/05/2021 PROCEDURES PERFORMED: Upper endoscopy with biopsies and esophageal dilation. HISTORY OF PRESENT ILLNESS: The patient is a 71-year-old female with a history of gastroesophageal reflux disease, on Nexium on a daily basis. Denies any heartburn, but does complain of globus and dysphagia type symptoms at times. Plan is for upper endoscopy. DESCRIPTION OF PROCEDURE: The risks and benefits of the procedure were explained to the patient, those risks including but not limited to bleeding, perforation and the risk of sedation. She understood these risks and gave informed consent. Sedation was given using propofol per Anesthesia. Next, using a standard Olympus upper endoscope, the scope was placed in the patient's mouth and advanced under direct vision through the esophagus, stomach and into the second portion of the duodenum. The larynx was normal in appearance. The upper and mid esophagus was normal. In the distal esophagus, two pink mucosal tongues were noted. Biopsies were obtained to rule out Gordillo's esophagus. No evidence of stricture or esophagitis. There was a mild diffuse gastritis in the gastric fundus and body and also a mild erythematous gastritis in the antrum. Biopsies obtained to rule out H. pylori. The pylorus was normal and patent. The duodenal bulb, first and second portion were normal. The scope was then brought back up into the patient's stomach and a Savary guidewire was inserted through the scope, leaving the guidewire in place as the scope was then withdrawn. Next, a 48-Italian Savary dilation of the esophagus was performed without difficulty. The wire and dilator were removed. The scope was reintroduced into the patient's stomach. There was no evidence of mucosal tear after dilation. The scope was then withdrawn and the procedure terminated. The patient tolerated the procedure well. IMPRESSION: 1. 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 2. Gastritis. 3. Otherwise, normal upper endoscopy. RECOMMENDATIONS: 1. Await biopsy results. 2. Continue PPI therapy. [address] [address] PROCEDURE REPORT Name: CASEY SIMMS Room #: REG Shaheen Espino#: [id number] Admission: 05/05/21 Attend Phys: Juan Alberto Lyman Discharge: Date of : 54 Report #: [id number] 3. Observe the patient post-dilation. 4. We will proceed with colonoscopy next today. Thank you for allowing me to participate in her care. <ELECTRONICALLY SIGNED> By: Juan Alberto Velasquez MD 05/07/21 0819 0902 1156 Juan Alberto Velasquez MD /nt
== END | disposition home or self-care (01) ==
LOC: GI 07:53
PROVIDERS: ATTEND Specialist
DX: Z12.11 Encounter for screening for malignant neoplasm of colon (principal); Z86.010 Personal history of colon polyps; K63.5 Polyp of colon; K57.30 Diverticulosis of large intestine without perforation or abscess without bleeding; K64.8 Other hemorrhoids; K29.70 Gastritis, unspecified, without bleeding; K21.9 Gastro-esophageal reflux disease without esophagitis; F17.210 Nicotine dependence, cigarettes, uncomplicated; Z98.890 Other specified postprocedural states; Z79.899 Other long term (current) drug therapy; Z85.818 Personal history of malignant neoplasm of other sites of lip, oral cavity, and pharynx; Z85.3 Personal history of malignant neoplasm of breast; Z90.49 Acquired absence of other specified parts of digestive tract
CPT/HCPCS: 62110; 62900

== ENCOUNTER 2021-06-20 23:18 | Emergency (ER) | payer OTHER ==
[~2021-06-20] VITALS: Ht 170.2 cm; Wt 56.7 kg
[2021-06-21] MEDS ORDERED: LYNOX 10-300 M1 EACH PO (01:42)
[2021-06-21 01:50] VITALS: BP 172/94
== END 2021-06-21 01:51 | disposition home or self-care (01) ==
LOC: ER 23:18
DX: R07.81 Pleurodynia (principal); F17.210 Nicotine dependence, cigarettes, uncomplicated; I10 Essential (primary) hypertension; Z79.899 Other long term (current) drug therapy; W01.0XXA Fall on same level from slipping, tripping and stumbling without subsequent striking against object, initial encounter; Y93.89 Activity, other specified; Y92.098 Other place in other non-institutional residence as the place of occurrence of the external cause; Y99.9 Unspecified external cause status

== ENCOUNTER 2021-07-08 22:22 | Emergency (ER) | payer OTHER ==
[~2021-07-08] VITALS: Ht 167.6 cm; Wt 55.8 kg
[~2021-07-08 22:22] MED LIST changes: +LYNOX 10-300 M1 EACH PO
[2021-07-08] MEDS ORDERED: LOSARTAN POTASS50 MG PO (22:43)
[2021-07-08] MEDS ORDERED: MEDROLDOSEPACK PO (23:23)
[2021-07-08] MEDS ORDERED: NORCO7.5 PO (23:23)
[2021-07-08 23:30] VITALS: BP 126/84
== END 2021-07-08 23:31 | disposition home or self-care (01) ==
LOC: ER 22:22
DX: M54.42 Lumbago with sciatica, left side (principal); M79.605 Pain in left leg; K21.9 Gastro-esophageal reflux disease without esophagitis; I10 Essential (primary) hypertension; F32.9 Major depressive disorder, single episode, unspecified; F17.210 Nicotine dependence, cigarettes, uncomplicated; Z85.3 Personal history of malignant neoplasm of breast; Z90.11 Acquired absence of right breast and nipple; Z98.890 Other specified postprocedural states; Z85.819 Personal history of malignant neoplasm of unspecified site of lip, oral cavity, and pharynx; Z79.1 Long term (current) use of non-steroidal anti-inflammatories (NSAID); Z79.891 Long term (current) use of opiate analgesic; Z79.899 Other long term (current) drug therapy

== ENCOUNTER → 2021-07-29 | Outpatient (CLI) | payer OTHER ==
[~2021-07-29] MED LIST changes: +LOSARTAN POTASS50 MG PO; +MEDROLDOSEPACK PO; +NORCO7.5 PO
== END ==
LOC: BC 13:49
PROVIDERS: ATTEND Family Medicine
DX: Z12.31 Encounter for screening mammogram for malignant neoplasm of breast (principal); N64.89 Other specified disorders of breast

== ENCOUNTER 2021-08-19 12:42 | Inpatient (IN) | payer OTHER ==
[~2021-08-19] VITALS: Ht 167.6 cm; Wt 52.2 kg
[2021-08-19 12:43] VITALS: BP 93/57
[2021-08-19 13:59] LABS: HEMATOCRIT 40.6 % (37.0-47.0); HEMOGLOBIN 13.7 gm/dL (12.0-15.0); MCH 34.2 pg (26.0-34.0); MCHC 33.7 g/dL (28.0-37.0); MCV 101.5 fL (80.0-100.0); RDW 14.3 % (10.5-14.5); WBC 6.4 thou/uL (4.0-11.0)
[2021-08-19 14:11] LABS: CALCIUM 8.9 mg/dL (8.5-10.1); CREATININE 0.5 mg/dL (0.6-1.0); POTASSIUM 3.4 mmol/L (3.5-5.1)
[2021-08-19 14:17] LABS: ALBUMIN 3.5 g/dL (3.4-5.0); TOTAL BILIRUBIN 0.4 mg/dL (0.2-1.0); TOTAL PROTEIN 6.6 g/dL (6.4-8.2)
[2021-08-20 02:01] VITALS: BP 175/99
[2021-08-20 04:42] VITALS: BP 186/99
[2021-08-21 08:38] VITALS: BP 155/85
--- NOTE | 2021-08-21 14:46 | NUR ---
ATTEMPTED TO EVALUATE PATIENT THIS DATE. PATIENT REPORTS PAIN IS MOSTLY RESOLVED. UP AD GERA IN ROOM AT THIS TIME. DENIES CONCERNS REGARDING MOBILITY. REPORTS FEELING STEADY ON FEET WHEN UP IN ROOM. DECLINED TRIALING STAIRS, ENDORSING NOT HAVING MANY STAIRS AT HOME. PT PROVIDED EDUCATION ON LOW BACK/GLUTE STRETCHES AND CORE STRENGTHENING FOR FUTURE PAIN MANAGEMENT. PHYSICAL THERAPY WILL SIGN OFF AT THIS TIME; PLEASE RECONSULT IF PATIENT'S STATUS CHANGES OR NEEDS ARISE.
--- NOTE | 2021-08-21 15:18 | NUR ---
PT ALERT AND ORIENTED TIMES FOUR. VSS. PT C/O PAIN PRN PAIN MEDICATIONS GIVEN WITH GOOD RELEIF. PT TOLERATES MEDS AND MEALS. PT UP AB GERA WITH STEADY GAIT. WILL CONTINUE TO MONITOR.
[2021-08-21 16:53] VITALS: BP 131/63
[2021-08-21 20:10] VITALS: BP 122/52
--- NOTE | 2021-08-22 00:29 | NUR ---
ASSUMED CARE AT 1900 OF 08/21. PATIENT IS A&OX4, DENIES SHORTNESS OF BREATH. REPORTS PAIN IN LLE, PAIN MANAGED WITH PRN PAIN MEDICATION WITH ADEQUATE EFFECTIVENESS. RIGHT FOREARM PIV IS IN PLACE, INTACT AND PATENT. NO S/S OF INFECTION OR INFILTRATION. REQUESTED FOR HS SNACKS, WHICH WAS PROVIDED. SLEEPING ON HOURLY ROUNDS. CALL LIGHT WITHIN REACH, WILL CONTINUE TO MONITOR.
[2021-08-22 06:17] LABS: ABSOLUTE NEUTROPHILS 6.7 thou/uL (1.4-8.2); BASOPHILS 0.2 % (0.0-2.0); HEMOGLOBIN 13.1 gm/dL (12.0-15.0); LYMPHOCYTES 7.7 % (24.0-44.0); MCH 34.3 pg (26.0-34.0); MCHC 34.5 g/dL (28.0-37.0); MCV 99.3 fL (80.0-100.0); MONOCYTES 4.9 % (1.0-8.0); PLATELET COUNT 285 thou/uL (150-400); POLYS 87.2 % (36.0-66.0); RBC 3.83 mil/uL (4.20-5.00); RDW 14.1 % (10.5-14.5); WBC 7.7 thou/uL (4.0-11.0)
[2021-08-22 06:28] LABS: CALCIUM 8.4 mg/dL (8.5-10.1); CREATININE 0.6 mg/dL (0.6-1.0); POTASSIUM 3.3 mmol/L (3.5-5.1)
[2021-08-22 07:47] VITALS: BP 131/76
[2021-08-22] MEDS ORDERED: GABAPENTIN 100100 MG PO (08:37)
[2021-08-22] MEDS ORDERED: PREDNISONE 20 M20 M1 PO (08:39)
[2021-08-22 09:55] VITALS: BP 131/76
--- NOTE | 2021-08-22 10:17 | NUR ---
ASSUMED CARE OF PT AT 0700 THIS MORNING. PT WAS ADMITTED FOR SCIATIC PAIN IN LT LEG. PT STATED NO PAIN THIS MORNING AND IS READY TO GO HOME. PT ASSESSMENTS NOTED IN CHART AND OTHERWISE UNREMARKABLE. PT IS UP AT GERA AND HAS NO FALL PRECAUTIONS. CALL LIGHT AND OTHER NEEDS ARE IN REACH. MEDS AND TX GIVEN NEEDED AND SCHEDULED. WILL CONTINUE TO MONITOR AND NOTE ANY CHANGES. DR. LUGO HAS PLACED DISCHARGE ORDERS AND COMPLETED PAPERWORK. PT SIGNED ORDER AND EDUCATION AND DISCHARGE INFO IS WITH PT. PT WILL BE PICKED UP BY FRIEND AND WILL BE LEAVING BY POV.
--- NOTE | 2021-08-25 16:43 | H ---
[facility] [place] [address] HISTORY AND PHYSICAL Name: CASEY SIMMS Room #: 441-P [facility].#: [id number] Admission: 08/19/21 Attend Phys: Ady Baird MD, FAA Discharge: 08/22/21 Date of : 54 Report #: [id number] THIS REPORT FOR: cc: Ady Baird MD FAA FACEP Ady Baird MD FAA FACE Ady Baird MD FAA FACE ~ DATE OF SERVICE: 08/19/2021 CHIEF COMPLAINT: Low back pain with left leg pain. HISTORY OF PRESENT ILLNESS: The patient is a 71-year-old white female, patient of mine for years with history of sciatica, which has flared over the past 3-4 weeks. She was evaluated in the Emergency Department. The CT of her lumbar spine had an unusual appearance, this along with history of breast cancer, prompted admission to the hospital for pain control and further more definitive evaluation of her pain syndrome and the initial radiographic findings. 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 Keven Lino and adjuvant radiation therapy by Dr. Cesar Rowland in 2019; acid reflux; hypertension. PAST SURGICAL HISTORY: Appendectomy. MEDICATIONS: Tylenol 500 mg 1 p.o. b.i.d. p.r.n. pain, not to exceed 4 grams ____ 24 hours, calcium carbonate with vitamin D 1 p.o. daily, Benadryl 50 mg 1 p.o. at bedtime, Lexapro 10 mg 1 p.o. daily, Nexium 22 mg 1 p.o. daily, losartan 50 mg 1 p.o. daily, multivitamin 1 p.o. daily, vitamin E 400 international units p.o. daily. ALLERGIES: No known drug allergies. SOCIAL HISTORY: She is single. 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 FAMILY HISTORY: Noncontributory. REVIEW OF SYSTEMS: GENERAL: No fever, chills, nausea, vomiting, or diarrhea. EYES: No visual changes. ENT: No problems with hearing, swallow, taste or smell. CARDIOVASCULAR: No chest pain or palpitations. RESPIRATORY: No shortness of breath. GASTROINTESTINAL: No abdominal pain. GENITOURINARY: No problems urinating. [facility] [address] [place] [address] HISTORY AND PHYSICAL Name: CASEY SIMMS Room #: 441-P [facility]#: [id number] Admission: 08/19/21 Attend Phys: Ady Baird MD, FAAF Discharge: 08/22/21 Date of : 54 Report #: [id number] MUSCULOSKELETAL: Chronic back pain. NEUROLOGIC: She has lumbar pain with radiation to her left anterior thigh. PSYCHIATRIC: No disturbing thoughts. DERMATOLOGIC: No disturbing lesions or rash. Remainder of system review is negative. PHYSICAL EXAMINATION: VITAL SIGNS: Temperature is 36.9, pulse 117, respirations 18, blood pressure 93/57, pulse ox on room air is 95%. She is in acute pain with lumbar pain and left leg pain. HEENT: Pupils equal, round, reactive to light and accommodation. Extraocular muscles intact. Pharynx unremarkable. NECK: Supple. HEART: S1, S2. CHEST: Clear. ABDOMEN: Soft, nontender. EXTREMITIES: Left thigh is nontender, which has positive straight leg raise on the left at 10 degrees. LABORATORY DATA: CBC: White count 6.4, hemoglobin 13.7, hematocrit 40.6, platelets 349,000. Serum chemistry: Sodium 143, potassium 3.4, chloride 104, CO2 of 28, BUN 7, creatinine 0.5, glucose is 98, calcium is 8.9, total bilirubin 0.4, AST 15, ALT 17, alkaline phosphatase 72, total protein 6.6, albumin 3.5. CT scan of the head without contrast showed no acute intracranial abnormality, no findings of hemorrhage. Moderately prominent periventricular microvascular ischemia. This demonstrated with volume loss. Chest x-ray done from the Emergency Department showed no acute cardiopulmonary abnormality. ASSESSMENT AND PLAN: Left sciatica; chronic back pain; arthritis; history of breast cancer, right breast, status post lumpectomy with Dr. Keven Lino and adjuvant radiation therapy with Dr. 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 Plan is admit to hospital. Pain control. Follow up results of MRI of the lumbosacral spine. Correct potassium. <ELECTRONICALLY SIGNED> By: Ady Baird MD, FAAFP, FACEP 08/25/21 1643 04 24 Ady Baird MD, FAAFP, FACEP /nt
== END 2021-08-22 10:37 | disposition home or self-care (01) | DRG 552 ==
LOC: ER 12:42 → EROBS 15:56 → 4S 08-20 18:41
PROVIDERS: Internal Medicine; Nurse Practitioner Family; ADMIT Family Medicine; ATTEND Family Medicine
DX: M51.17 Intervertebral disc disorders with radiculopathy, lumbosacral region (principal); M47.897 Other spondylosis, lumbosacral region; Z20.822 Contact with and (suspected) exposure to COVID-19; I10 Essential (primary) hypertension; Z85.3 Personal history of malignant neoplasm of breast; M48.07 Spinal stenosis, lumbosacral region; M71.38 Other bursal cyst, other site; M19.90 Unspecified osteoarthritis, unspecified site; K21.9 Gastro-esophageal reflux disease without esophagitis; E87.6 Hypokalemia; Z92.3 Personal history of irradiation; G89.29 Other chronic pain; Z86.010 Personal history of colon polyps; Z90.49 Acquired absence of other specified parts of digestive tract; F17.210 Nicotine dependence, cigarettes, uncomplicated; F32.A Depression, unspecified; Z85.819 Personal history of malignant neoplasm of unspecified site of lip, oral cavity, and pharynx
CPT/HCPCS: 10195

== ENCOUNTER → 2021-09-13 | Outpatient (CLI) | payer OTHER ==
[~2021-09-13] VITALS: Ht 167.6 cm; Wt 54.4 kg
[~2021-09-13] MED LIST changes: +GABAPENTIN 100100 MG PO; +PREDNISONE 20 M20 M1 PO; +TRAMADOL 50 MG50 MG PO; +VITAMIN B COMP1 EACH PO
[2021-09-13 13:11] VITALS: BP 167/91
--- NOTE | 2021-09-13 13:25 | NUR ---
Pain Clinic Assessment: 1. History of Osteoarthritis: HANDS BACK History of Rheumatoid Arthritis: 2. Height: 5 ft. 6 in. 167.6 cm. Weight: 120.0 lb. oz. 54.432 kg. Patient's BMI: 19.4 3. Vital Signs: BP: 167/91 Pulse: 94 Resp: 14 Temp: 02 Sat: 97 ECG Mon: 4. Pain Intensity: 10 5. Fall Risk: Dizziness: N Needs help standing or walking: N Fallen in the last 3 months: Y Fall risk comments: 6. Patient on Blood Thinner: None 7. History of Hypertension: Y 8. Opioid Therapy greater than 6 weeks: Opiate Contract Signed: 9. Risk Assessment Tool Provided: 11 HIGH RISK 10. Functional Assessment Tool: 11. Recreational Drug Use: Never Drug Type: Tobacco Use: Current Every Day Smoker Tobacco Type: Cigarettes Amount or Packs/day: 1/2 PACK How Many Years: Alcohol Use: Yes Frequency: Weekly Quant:
== END ==
LOC: PAIN 07:33
PROVIDERS: ATTEND Anesthesiology Pain Medicine
DX: M51.26 Other intervertebral disc displacement, lumbar region (principal); M48.061 Spinal stenosis, lumbar region without neurogenic claudication; F17.200 Nicotine dependence, unspecified, uncomplicated

== ENCOUNTER → 2021-09-20 | Outpatient (CLI) | payer OTHER ==
[~2021-09-20] VITALS: Ht 167.6 cm; Wt 55.6 kg
[2021-09-20 13:00] VITALS: BP 144/86
--- NOTE | 2021-09-20 13:06 | NUR ---
Pain Clinic Assessment: 1. History of Osteoarthritis: HANDS BACK History of Rheumatoid Arthritis: 2. Height: 5 ft. 6 in. 167.6 cm. Weight: 122.6 lb. oz. 55.611 kg. Patient's BMI: 19.8 3. Vital Signs: BP: 144/86 Pulse: 102 Resp: 14 Temp: 02 Sat: 97 ECG Mon: 4. Pain Intensity: 10 5. Fall Risk: Dizziness: N Needs help standing or walking: N Fallen in the last 3 months: N Fall risk comments: 6. Patient on Blood Thinner: None 7. History of Hypertension: Y 8. Opioid Therapy greater than 6 weeks: Opiate Contract Signed: 9. Risk Assessment Tool Provided: 11 HIGH RISK 10. Functional Assessment Tool: 11. Recreational Drug Use: Never Drug Type: Tobacco Use: Current Every Day Smoker Tobacco Type: Cigarettes Amount or Packs/day: 1/2 pack How Many Years: Alcohol Use: Yes Frequency: Weekly Quant: 4
== END | disposition home or self-care (01) ==
LOC: PAIN 07:22
PROVIDERS: ATTEND Anesthesiology Pain Medicine
DX: M54.16 Radiculopathy, lumbar region (principal); G89.29 Other chronic pain; F17.210 Nicotine dependence, cigarettes, uncomplicated; M19.90 Unspecified osteoarthritis, unspecified site; Z98.890 Other specified postprocedural states; Z79.899 Other long term (current) drug therapy

== ENCOUNTER 2021-10-24 09:52 | Emergency (ER) | payer OTHER ==
[~2021-10-24] VITALS: Ht 167.6 cm; Wt 54.4 kg
[2021-10-24 12:11] VITALS: BP 126/68
== END 2021-10-24 12:11 | disposition home or self-care (01) ==
LOC: ER 09:52
DX: M54.50 Low back pain, unspecified (principal); S31.010A Laceration without foreign body of lower back and pelvis without penetration into retroperitoneum, initial encounter; Z85.819 Personal history of malignant neoplasm of unspecified site of lip, oral cavity, and pharynx; Z79.899 Other long term (current) drug therapy; W17.89XA Other fall from one level to another, initial encounter; Y93.89 Activity, other specified; Y92.9 Unspecified place or not applicable; Y99.9 Unspecified external cause status

== ENCOUNTER 2021-11-08 17:30 | Emergency (ER) | payer OTHER ==
[~2021-11-08] VITALS: Ht 167.6 cm; Wt 57.6 kg
[2021-11-08 17:32] VITALS: BP 155/78
== END 2021-11-08 18:05 | disposition home or self-care (01) ==
LOC: ER 17:30
DX: S31.821D Laceration without foreign body of left buttock, subsequent encounter (principal); F17.210 Nicotine dependence, cigarettes, uncomplicated; Z48.02 Encounter for removal of sutures; Z79.899 Other long term (current) drug therapy; X58.XXXD Exposure to other specified factors, subsequent encounter